=== PATIENT | female | born 1960 | race African-American/Black ===

== ENCOUNTER 2020-04-10 07:49 | Outpatient (CLI) | payer OTHER ==
--- NOTE | 2020-04-10 08:47 | ULT ---
Pelvic ultrasound 04/10/2020 COMPARISON:None available HISTORY:Pelvic pain TECHNIQUE: Multiplanar grayscale sonographic imaging of thepelvis provided with transabdominal and en dovaginal imaging. The ovaries are assessed with Doppler interrogation including color flow and spectral analysis FINDINGS: No free fluid is seen in the pelvis. The uterus measures approximately 8.3 x 5.0 x 3.3 cm. The right ovary measures 2.5 x 1.4 x 1.8 cm and demonstrates normal blood flow without evidence for mass. The left ovary demonstrates normal blood flow without evidence for mass and measures 3.0 x 1.0 x 2.4 cm. There is a heterogeneously hypoechoic lesion associated with the inferior aspect of the uterus measur ing 2.3 cm suggesting a uterine fibroid. There is an additional 2.4 x 1.5 cm posterior heterogeneously hypoechoic solid lesion associated with the midportion of the uterus suggesting a red devil rine fibroid. The endometrial stripe is somewhat ill-defined and difficult to accurately measure. There is no defin itive thickening of the endometrium. On the transabdominal imaging the endometrial thickness is approximately 4 mm and on the transvaginal imaging the endometrial thickness is estimated in the 4 mm range. Impression:Findings suggesting uterine fibroid disease. Somewhat ill-defined endometrial stripe with no definitive evidence for abnormal thickening. No free fluid. Normal-appearing ovaries.
== END 2020-04-10 07:50 | disposition home or self-care (01) ==
LOC: BICULT 07:49
PROVIDERS: ATTEND Family Medicine
DX: R10.2 Pelvic and perineal pain (principal)
CPT/HCPCS: 76856

== ENCOUNTER 2020-04-10 07:51 | Outpatient (CLI) | payer OTHER ==
--- NOTE | 2020-04-10 09:11 | MMO ---
Bilateral MAMMO Bilat Screen [facility]. CLINICAL HISTORY: Patient is 59 years old and is seen for screening. The patient has the following family history of breast cancer: sister. The patient has no personal history of cancer. VIEWS: The views performed were: bilateral craniocaudal and bilateral mediolateral oblique. FILMS COMPARED: The present examination has been compared to prior imaging studies performed at [facility] on 10/03/2013, 10/22/2015, 12/09/2016 and 09/28/2018. This study has been interpreted with the assistance of computer-aided detection. MAMMOGRAM FINDINGS: There are scattered fibroglandular densities. There are no suspicious masses, suspicious calcifications, or new areas of architectural distortion. IMPRESSION: THERE IS NO MAMMOGRAPHIC EVIDENCE OF MALIGNANCY. A ROUTINE FOLLOW-UP MAMMOGRAM IN 1 YEAR IS RECOMMENDED. ACR BI-RADS Category 1 - Negative MAMMOGRAPHY NOTE: 1. A negative mammogram report should not delay a biopsy if a dominant of clinically suspicious mass is present. 2. Approximately 10% to 15% of breast cancers are not detected by mammography. 3. Adenosis and dense breasts may obscure an underlying neoplasm. Reported by: DANIELA GARCIA MD Electonically Signed: [id number]
== END 2020-04-10 07:52 | disposition home or self-care (01) ==
LOC: BICMAMMO 07:51
PROVIDERS: ATTEND Family Medicine
DX: Z12.31 Encounter for screening mammogram for malignant neoplasm of breast (principal); Z80.3 Family history of malignant neoplasm of breast
CPT/HCPCS: 77067

== ENCOUNTER 2020-10-24 08:32 | Outpatient (CLI) | payer OTHER | END 2020-10-24 08:33 | disposition home or self-care (01) | LOC: BICRAD 08:32 | PROVIDERS: ATTEND Family Medicine | DX: M54.2 Cervicalgia (principal); M47.812 Spondylosis without myelopathy or radiculopathy, cervical region | CPT/HCPCS: 72040 ==